=== PATIENT | female | born 1980 | race Caucasian/White ===

== ENCOUNTER 2017-01-10 05:53 | Inpatient (IN) | payer MEDICAID ==
[~2017-01-10 05:53] MED LIST: FERRTAB2 PO; METR-1 PO; PREN29TA PO
--- NOTE | 2017-01-10 06:26 | HHI.HP ---
HPI Chief Complaint Contractions Date Seen: Jan 10, 2017 Time Seen: 06:00 (Adam Murguia II, MD) Travel History International Travel<30 Days: No Contact w/Intl Traveler<30Days: No Known Affected Area: No (Adam Murguia II, MD) History of Present Illness HPI 36-year-old white female a 3-37 weeks gestation [facility] and presents in precipitate labor completely dilated on admission, heart rate tracing is reactive and no bleeding or leakage. Membranes are intact this point Weeks Gestation: 37 Para: 5 : 9 : 3 (Adam Murguia II, MD) History Obstetric History Obstetric History This patient's a grand multipara 9 para 5 A3 early terminations (Adam Murguia II, MD) Social History Alcohol Use: No Tobacco Use: Yes Substance Abuse: No (Adam Murguia II, MD) Allergies-Medications (Allergen,Severity, Reaction): Coded Allergies: No Known Allergies (Unverified , 11/19/16) Home Meds Active Scripts Metronidazole (Flagyl) 500 Mg Tab, 1000 MG PO DAILY for Infection, #8 TAB 0 Refills Prov:Suzy Oleary 12/05/16 Multi-Vit/Iron-Folic Ejjp-I59-Gkg C (Ferralet) 90-1-0.012-120 mg Tab, 1 BOTTLE PO DAILY for anemia, #90 BOTTLE Prov:Russel Moreno MD 11/19/16 Vit-Iron Carbonyl ( Plus Iron 29-1 mg) 1 Tab Tab, 1 TAB PO DAILY for Nutritional Supplement, #90 TAB 0 Refills Prov:Russel Moreno MD 11/19/16 Review of Systems General / Constitutional: No: Fever, Weight Gain, Chills, Other Eyes: No: Diploplia, Blurred Vision, Visual changes, Pain, Photophobia HENT: No: Headaches, Vertigo, Lightheadedness Cardiovascular: No: Irregular Rhythm, Chest Pain or Discomfort, Palpitations, Tachycardia, Syncope, Varicosities, Edema, Cyanosis Respiratory: No: Cough, Short of Breath, Other Gastrointestinal: No: Nausea, Vomiting, Diarrhea Genitourinary: No: Decreased Urinary Output, Oliguria Musculoskeletal: No: Limited ROM, Weakness, Cramping, Edema, Pain Skin: No Rash, No Itching, No Dryness, No Lumps, No Change in Pigmentation, No Change in Nails, No Alopecia, No Lesions Neurologic: No: Weakness, Dizziness, Syncope, Focal Abnormalities, Coordination Problem, Headache, Slurred Speech, Seizures Psychiatric: No: Depression, Suicidal Ideations, Homicidal Ideation Endocrine: No: Heat Intolerance, Cold Intolerance, Polydipsia, Polyuria, Other (Adam Murguia II, MD) Physical Exam Narrative GENERAL: Well-nourished, well-developed patient. SKIN: Warm and dry. HEAD: Normocephalic and atraumatic. EYES: No scleral icterus. No injection or drainage. ENT: No nasal drainage noted. Mucous membranes pink. Airway patent. NECK: Supple, trachea midline. No JVD. CARDIOVASCULAR: Regular rate and rhythm without murmurs, gallops, or rubs. RESPIRATORY: Breath sounds equal bilaterally. No accessory muscle use. BREASTS: Bilateral exam showed no masses , no retractions, no nipple discharge. ABDOMEN/GI: Abdomen soft, non-tender, bowel sounds present, no rebound, no guarding Gravid to [-] weeks size Fundal Height: [-] GENITOURINARY: External Genitalia: intact and normal in appearance BUS glands: [-] Cervix: [-] Dilatation: [-] Effacement: [-] Station: [-] Presentation: [-] Membranes: [intact or ruptured] Uterine Contractions: [-] FHT's: Category: [-] Baseline: [-] Reactive: [-] Variability: [-] Decels: [-] EXTREMITIES: No cyanosis or edema. BACK: Nontender without obvious deformity. No CVA tenderness. NEUROLOGICAL: Awake and alert. Motor and sensory grossly within normal limits. Five out of 5 muscle strength in all muscle groups. Normal speech. (Solis Messina MD R2) Narrative HEENT exam is normal limits cardiovascular exam regular rate and rhythm lungs are clear Abdomen fundal height equal dates Cervix is 10 cm with intact membranes 100% effaced extremities are within normal limits (Adam Murguia II, MD) Caprini VTE Risk Assessment Caprini Risk Assessment Model Point Value = 1 Point Value = 2 Point Value = 3 Point Value = 5 Age 41-60 Minor surgery BMI > 25 kg/m2 Swollen legs Varicose veins or History of unexplained or recurrent spontaneous Oral contraceptives or hormone replacement Sepsis (< 1 month) Serious lung disease, including pneumonia (< 1 month) Abnormal pulmonary function Acute myocardial infarction Congestive heart failure (< 1 month) History of inflammatory bowel disease Medical patient at bed rest Age 61-74 Arthroscopic surgery Major open surgery (> 45 min) Laparoscopic surgery (> 45 min) Malignancy Confined to bed (> 72 hours) Immobilizing plaster cast Central venous access Age >= 75 History of VTE Family history of VTE Factor V Leiden Prothrombin [id number] Lupus anticoagulant Anticardiolipin antibodies Elevated serum homocysteine Heparin-induced thrombocytopenia Other congenital or acquired thrombophilia Stroke (< 1 month) Elective arthroplasty Hip, pelvis, or leg fracture Acute spinal cord injury (< 1 month) Prophylaxis Regimen Total Risk Factor Score Risk Level Prophylaxis Regimen 0-1 Low Early ambulation 2 Moderate Order ONE of the following: *Sequential Compression Device (SCD) *Heparin 5000 units SQ BID 3-4 Higher Order ONE of the following medications: *Heparin 5000 units SQ TID *Enoxaparin/Lovenox 40 mg SQ daily (WT < 150 kg, CrCl > 30 mL/min) *Enoxaparin/Lovenox 30 mg SQ daily (WT < 150 kg, CrCl > 10-29 mL/min) *Enoxaparin/Lovenox 30 mg SQ BID (WT < 150 kg, CrCl > 30 mL/min) AND/OR *Sequential Compression Device (SCD) 5 or more Highest Order ONE of the following medications: *Heparin 5000 units SQ TID (Preferred with Epidurals) *Enoxaparin/Lovenox 40 mg SQ daily (WT < 150 kg, CrCl > 30 mL/min) *Enoxaparin/Lovenox 30 mg SQ daily (WT < 150 kg, CrCl > 10-29 mL/min) *Enoxaparin/Lovenox 30 mg SQ BID (WT < 150 kg, CrCl > 30 mL/min) AND *Sequential Compression Device (SCD) (Solis Messina MD R2) Caprini VTE Risk Assessment: No/Low Risk (score <= 1) (Adam Murguia II, MD) Data Data Orders Orders Ob (2e) Additional Admit Info (01/10/17 06:16) Admit To Inpatient (01/10/17 ) Code Status (01/10/17 06:23) Vital Signs (Adult) .Per protocol (01/10/17 06:23) Complete Blood Count With Diff (01/10/17 06:23) Hold Clot (01/10/17 06:23) Abo/Rh Blood Type (01/10/17 06:23) Urinalysis - C+S If Indicated (01/10/17 06:23) Resp Oxygen Non Rebreathe Mask (01/10/17 ) Inpatient Certification (01/10/17 ) Specimen To Be Collected PRN (01/10/17 06:23) Vital Signs (Adult) .QSHIFT (01/10/17 06:23) Activity Oob Ad Nancy (01/10/17 06:23) Ice / Cold Pack PRN (01/10/17 06:23) Discontinue Iv (01/10/17 06:23) Sitz Bath PRN (01/10/17 06:23) ^ Massage (01/10/17 06:23) ^ Rhogam (01/10/17 06:23) Urinary Catheter Management .PRN (01/10/17 06:23) Diet Regular Basic (01/10/17 Breakfast) Sodium Chloride 0.9% Flush (Ns Flush) (01/10/17 09:00) Sodium Chloride 0.9% Flush (Ns Flush) (01/10/17 06:30) Oxytocin 30 Units-500ml Premix (Pitocin (01/10/17 06:30) Acetaminophen (Tylenol) (01/10/17 06:30) Ibuprofen (Motrin) (01/10/17 06:30) Benzocaine 20% Top Spr (Americaine 20% T (01/10/17 06:30) Witch [place]-Glycerin Pad (Tucks Pads) (01/10/17 06:30) Docusate Sodium-Senna (Gifty-Colace) (01/10/17 06:30) Zolpidem (Ambien) (01/10/17 06:30) Bbkarnl-Polom-Jvlwkof Inj (M-M-R Ii Inj) (01/10/17 16:00) Kgtm-Hgf-Npdxpl (Booster) Inj (Boostrix (01/10/17 16:00) Al-Mag Hy-Si 40-40-4 Mg/Ml Liq (Mag-Al P (01/10/17 06:30) Ondansetron Odt (Zofran Odt) (01/10/17 06:30) (Solis Messina MD R2) Assessment/Plan Assessment and Plan Patient is 36-year-old white female multiparous at 37 weeks presents precipitate labor in the second stage completely dilated. Plan is admission labor management and anticipate rapid vaginal delivery (Adam Murguia II, MD) Solis Messina MD R2 Jan 10, 2017 06:26 Adam Murguia II, MD Jan 10, 2017 06:44
[2017-01-10] MEDS ORDERED: ZOLPIDEM TARTRATE 5 MG TAB PO PRN (06:30)
[2017-01-10] MEDS ORDERED: ALUMINUM/MAGNESIUM/SIMETH 30 ML CUP PO PRN (06:30)
[2017-01-10] MEDS ORDERED: SODIUM CHLORIDE 0.9% FLUSH 10 ML FLUSH IV FLUSH PRN (06:30)
[2017-01-10] MEDS ORDERED: WITCH HAZEL 50%/GLYCERIN 12.5% 40 PAD JAR TOPICAL PRN (06:30)
[2017-01-10] MEDS ORDERED: ONDANSETRON ODT 4 MG TAB PO PRN (06:30)
[2017-01-10] MEDS ORDERED: BENZOCAINE 20% TOPICAL SPRAY 60 ML CAN TOPICAL PRN (06:30)
[2017-01-10] MEDS ORDERED: ACETAMINOPHEN 325 MG TAB PO PRN (06:30)
[2017-01-10] MEDS ORDERED: OXYTOCIN 30 UNITS-500ML PREMIX 500 ML IV SCH (06:30)
[2017-01-10] MEDS ORDERED: DOCUSATE SODIUM 50 MG/SENNA 8.6 MG TAB PO PRN (06:30)
--- NOTE | 2017-01-10 06:32 | PD.OB.DELI ---
Weeks gestation: 37 Gest age assessed date: Jan 10, 2017 Gest age assessed time: 06:30 Pt started active labor?: Yes Active labor start date: Jan 10, 2017 Active labor start time: 06:30 Medical induction of labor?: No Artificial rupture of membrane: Yes Artificial ROM date: Jan 10, 2017 Artifical ROM time: 06:31 Anesthesia: None Episiotomy: None Vaginal Delivery: Normal Presentation: Occiput anterior Nuchal Cord: None Delayed cord clamping (45 sec): No Infant: Female Delivery date: Jan 10, 2017 Delivery time: 06:13 One Minute : 9 Five Minute : 9 Weight: [id number] Placenta: Spontaneous delivery Laceration: No lacerations Estimated blood loss: 150cc Additional Information Delivery by Dr. Pradhan SDW: Dr. Murguia, Solis Harkins MD Jan 10, 2017 06:32
[2017-01-10] MEDS ORDERED: SODIUM CHLORIDE 0.9% FLUSH 10 ML FLUSH IV FLUSH SCH (09:00)
[2017-01-10] MEDS: IBUPROFEN 600 MG TAB PO PRN ×2 (09:18→15:30)
[2017-01-10] MEDS: oxyCODONE/ACETAMINOPHEN 5 MG/325 MG TAB PO PRN ×3 (11:03→21:04)
[2017-01-10] MEDS ORDERED: DIPHTH/TETANUS/ACEL PERTUSSIS (BOOSTER) 0.5 ML VIAL/PFS IM ONE (16:00)
[2017-01-10] MEDS ORDERED: MEASLES, MUMPS, RUBELLA VACCINE 0.5 ML VIAL SQ ONE (16:00)
[2017-01-10 16:51] LABS: AUTOMATED NEUTROPHIL # 12.5 TH/MM3 (1.8-7.7); BASOPHIL # 0.1 TH/MM3 (0-0.2); BASOPHIL % 0.5 % (0.0-2.0); EOSINOPHIL # 0.1 TH/MM3 (0-0.4); EOSINOPHIL % 0.6 % (0.0-4.0); HEMATOCRIT 27.4 % (35.0-46.0); HEMO FLAGS DIFF FINAL; LYMPH % 20.4 % (9.0-44.0); LYMPHOCYTE # 3.5 TH/MM3 (1.0-4.8); MEAN CORPUSCULAR HEMOGLOBIN 24.2 PG (27.0-34.0); MEAN CORPUSCULAR HGB CONC 33.6 % (32.0-36.0); MONO % 5.4 % (0.0-8.0); NEUT % 73.1 % (16.0-70.0); PLATELET COUNT 376 TH/MM3 (150-450); RED BLOOD COUNT 3.81 MIL/MM3 (4.00-5.30); RED CELL DISTRIBUTION WIDTH 16.1 % (11.6-17.2); WHITE BLOOD COUNT 17.2 TH/MM3 (4.0-11.0)
[2017-01-10 19:57] LABS: BACTERIA, URINE MOD /hpf; BLOOD, URINE LARGE (NEG); GLUCOSE,URINE NEG (NEG); KETONE, URINE NEG (NEG); NITRITE,URINE POS (NEG); SQUAMOUS EPITHELIAL CELL URINE 1 /hpf (0-5)
[2017-01-10 19:58] LABS: COMMENT (UR) CULTURE INDICATED; CULTURE IF INDICATED CULTURE INDICATED; URINE COLOR LIGHT-RED (YELLW/STRAW)
[2017-01-11] MEDS ORDERED: HEPATITIS B INFANT/ADOLESCENT VACCINE 5 MCG/0.5 ML VIAL IM ONE (09:00)
--- NOTE | 2017-01-11 10:22 | HHI.OB ---
Subjective Post Day: 1 Remarks Pt seen and examined this morning. Post day # 1 AFVSS overnight. Decreased lochia. Denies dysuria. No breast tenderness. She is feeding the baby via bottle. Appetite good. No nausea or vomiting. Patient has not yet had a bowel movement, but does endorse spell gas. Ambulating well. Denies calf pain or shortness of breath. Otherwise, she is doing well this morning and has no other concerns. Objective Objective Remarks GENERAL: Well-nourished, well-developed patient. CARDIOVASCULAR: Regular rate and rhythm without murmurs, gallops, or rubs. RESPIRATORY: Breath sounds equal bilaterally. No accessory muscle use. ABDOMEN/GI: Abdomen soft, non-tender. Fundus: Firm, non-tender at umbilicus. GENITOURINARY: Light to moderate bleeding. EXTREMITIES: No cyanosis or edema, non-tender, without signs of DVT. Medications and IVs Current Medications Medications (Trade) Dose Ordered Sig/Gosia Route Start Time Stop Time Status Last Admin (NS Flush) 2 ml BID IV FLUSH 01/10/17 09:00 (NS Flush) 2 ml UNSCH PRN IV FLUSH 01/10/17 06:30 (Tylenol) 650 mg Q4H PRN PO 01/10/17 06:30 (Motrin) 600 mg Q6H PRN PO 01/10/17 06:30 01/10/17 15:30 (Americaine 20% Top Spr) 1 spray Q4H PRN TOPICAL 01/10/17 06:30 01/10/17 09:18 (Tucks Pads) 1 applic QID PRN TOPICAL 01/10/17 06:30 01/10/17 09:18 (Gifty-Colace) 2 tab Q12H PRN PO 01/10/17 06:30 01/10/17 09:17 (Ambien) 5 mg HS PRN PO 01/10/17 06:30 (Mag-Al Plus Susp Liq) 15 ml Q8H PRN PO 01/10/17 06:30 (Zofran Odt) 4 mg Q6H PRN PO 01/10/17 06:30 (Percocet 5-325 Mg) 1 tab Q4H PRN PO 01/10/17 11:00 01/10/17 21:04 Assessment/Plan Assessment and Plan 36 y/o female who is day # 1 s/p . -Continue routine care. -Motrin PRN pain. -Encouraged OOB. Advised pelvic rest for 6 wks. -Polysubstance abuse: Patient UDS positive for amphetamines -Re: ctrl, she would like discuss her options at her follow-up appointment. -Anticipate discharge tomorrow pending clinical course. darell Cantu MD Discharge Planning Tomorrow pending clinical course Solis Messina MD R2 Jan 11, 2017 10:22
[2017-01-11] MEDS: IBUPROFEN 600 MG TAB PO PRN ×2 (10:36→19:07)
[2017-01-11] MEDS: oxyCODONE/ACETAMINOPHEN 5 MG/325 MG TAB PO PRN ×4 (10:36→23:49)
[2017-01-11 17:15] VITALS: BP 127/73; PULSE 61; RESP 18; TEMP 98.4
[2017-01-12] MEDS: IBUPROFEN 600 MG TAB PO PRN ×2 (05:29→13:22)
[2017-01-12] MEDS: oxyCODONE/ACETAMINOPHEN 5 MG/325 MG TAB PO PRN ×3 (05:29→13:22)
--- NOTE | 2017-01-12 09:38 | HHI.OB ---
Subjective Post Day: 2 Remarks day #2. AFVSS overnight. Pain minimal. Decreased lochia. Denies dysuria. No breast tenderness. She is feeding the baby via formula. Appetite good. No nausea or vomiting. Endorses flatus. No bowel movement. Ambulating well. Denies calf pain, shortness of breath, or cough. Otherwise, she is doing well this morning and has no other complaints. Objective Vitals/I&O Vital Signs Date Time Temp Pulse Resp B/P (MAP) Pulse Ox O2 Delivery O2 Flow Rate FiO2 01/11/17 17:15 98.4 61 18 127/73 (91) Objective Remarks GENERAL: Well-nourished, well-developed patient. CARDIOVASCULAR: Regular rate and rhythm without murmurs, gallops, or rubs. RESPIRATORY: Breath sounds equal bilaterally. No accessory muscle use. ABDOMEN/GI: Abdomen soft, non-tender. Fundus: Firm, non-tender at umbilicus. GENITOURINARY: Light to moderate bleeding. EXTREMITIES: No cyanosis or edema, non-tender, without signs of DVT. Medications and IVs Current Medications Medications (Trade) Dose Ordered Sig/Gosia Route Start Time Stop Time Status Last Admin (NS Flush) 2 ml BID IV FLUSH 01/10/17 09:00 (NS Flush) 2 ml UNSCH PRN IV FLUSH 01/10/17 06:30 (Tylenol) 650 mg Q4H PRN PO 01/10/17 06:30 (Motrin) 600 mg Q6H PRN PO 01/10/17 06:30 01/12/17 05:29 (Americaine 20% Top Spr) 1 spray Q4H PRN TOPICAL 01/10/17 06:30 01/10/17 09:18 (Tucks Pads) 1 applic QID PRN TOPICAL 01/10/17 06:30 01/10/17 09:18 (Gifty-Colace) 2 tab Q12H PRN PO 01/10/17 06:30 01/10/17 09:17 (Ambien) 5 mg HS PRN PO 01/10/17 06:30 (Mag-Al Plus Susp Liq) 15 ml Q8H PRN PO 01/10/17 06:30 (Zofran Odt) 4 mg Q6H PRN PO 01/10/17 06:30 (Percocet 5-325 Mg) 1 tab Q4H PRN PO 01/10/17 11:00 01/12/17 09:16 Assessment/Plan Assessment and Plan 36 y/o female who is day #2 s/p . -Continue routine care. -Motrin PRN pain. -Encouraged OOB. Advised pelvic rest for 6 wks. -Polysubstance abuse: Patient UDS positive for amphetamines -Re: ctrl, she would like discuss her options at her follow-up appointment. -Urine culture positive for GNR, treat on d/c based on sensitivities -Anticipate discharge today Bryn Garcia MD, R2 Jan 12, 2017 09:38
--- NOTE | 2017-01-12 09:39 | HHI.OB ---
Subjective Post Day: 2 Remarks day #2. AFVSS overnight. Pain minimal. Decreased lochia. Denies dysuria. No breast tenderness. She is feeding the baby via formula. Appetite good. No nausea or vomiting. Passing flatus. Had bowel movement. Ambulating well. Denies calf pain, shortness of breath, or cough. Otherwise, she is doing well this morning and has no other complaints. Objective Vitals/I&O Vital Signs Date Time Temp Pulse Resp B/P (MAP) Pulse Ox O2 Delivery O2 Flow Rate FiO2 01/11/17 17:15 98.4 61 18 127/73 (91) Objective Remarks GENERAL: Well-nourished, well-developed patient. CARDIOVASCULAR: Regular rate and rhythm without murmurs, gallops, or rubs. RESPIRATORY: Breath sounds equal bilaterally. No accessory muscle use. ABDOMEN/GI: Abdomen soft, non-tender. Fundus: Firm, non-tender at umbilicus. GENITOURINARY: Light to moderate bleeding. EXTREMITIES: No cyanosis or edema, non-tender, without signs of DVT. Medications and IVs Current Medications Medications (Trade) Dose Ordered Sig/Gosai Route Start Time Stop Time Status Last Admin (NS Flush) 2 ml BID IV FLUSH 01/10/17 09:00 (NS Flush) 2 ml UNSCH PRN IV FLUSH 01/10/17 06:30 (Tylenol) 650 mg Q4H PRN PO 01/10/17 06:30 (Motrin) 600 mg Q6H PRN PO 01/10/17 06:30 01/12/17 05:29 (Americaine 20% Top Spr) 1 spray Q4H PRN TOPICAL 01/10/17 06:30 01/10/17 09:18 (Tucks Pads) 1 applic QID PRN TOPICAL 01/10/17 06:30 01/10/17 09:18 (Gifty-Colace) 2 tab Q12H PRN PO 01/10/17 06:30 01/10/17 09:17 (Ambien) 5 mg HS PRN PO 01/10/17 06:30 (Mag-Al Plus Susp Liq) 15 ml Q8H PRN PO 01/10/17 06:30 (Zofran Odt) 4 mg Q6H PRN PO 01/10/17 06:30 (Percocet 5-325 Mg) 1 tab Q4H PRN PO 01/10/17 11:00 01/12/17 09:16 Assessment/Plan Assessment and Plan 36 y/o female who is day # 2 s/p . -Continue routine care. -Motrin PRN pain. -Encouraged OOB. Advised pelvic rest for 6 wks. -Polysubstance abuse: Patient UDS positive for amphetamines -Re: ctrl, she would like discuss her options at her follow-up appointment. -D/C today dw Dr. Blade MD Discharge Planning Tomorrow pending clinical course Irene Sterling MD R1 Jan 12, 2017 09:39
[2017-01-12] MEDS ORDERED: SENN1TAB PO (09:40)
[2017-01-12] MEDS ORDERED: IBUP-232 PO (09:40)
[2017-01-12] MEDS ORDERED: MACR100C2 PO (09:41)
--- NOTE | 2017-01-12 09:41 | HHI.DCPOC ---
Discharge Care Plan Diagnosis: (1) Normal , repeat Report Symptoms to Your Doctor -Temperature above 100.5 degrees -Redness, of incision or excessive or foul smelling drainage -Unusual pain or calf pain -Increased vaginal bleeding -Painful or difficulty urinating -Feelings of extreme sadness or anxiety after 2 weeks Goals to Promote Your Health * To prevent worsening of your condition and complications * To maintain your health at the optimal level Directions to Meet Your Goals Take your medications as prescribed Follow your dietary instruction Follow activity as directed Ensure plenty of rest for recovery Drink fluids for hydration Keep your appointments as scheduled Take your immunizations and boosters as scheduled If your symptoms worsen call your PCP, if no PCP go to Urgent Care Center or Emergency Room Smoking is Dangerous to Your Health. Avoid second hand smoke Call the 24-hour crisis hotline for domestic abuse at Bryn Garcia MD, R2 Jan 12, 2017 09:41
[2017-01-19 11:54] LABS: PHENCYCLIDINE URINE NEG (NEG)
[2017-01-19 11:55] LABS: BATH SALTS (MDPV) UR NEG (NEG); ECSTASY (MDMA) UR NEG (NEG); HEROIN (6-ACETYLMORPHINE) UR NEG (NEG); K2 SPICE UR NEG (NEG); OBMETHADONE UR NEG (NEG)
[2017-01-19 11:57] LABS: GABAPENTIN UR NEG (NEG); HYDROMORPHONE U NEG (NEG)
== END 2017-01-12 14:00 | disposition home or self-care (01) | DRG 775 ==
LOC: HOBED 05:53 → H2EB 06:16 → H1EA 08:07
PROVIDERS: ADMIT Obstetrics & Gynecology Maternal & Fetal Medicine; ATTEND Obstetrics & Gynecology Maternal & Fetal Medicine
PROC: 10E0XZZ Delivery of Products of Conception, External Approach (ICD-10-PCS; principal; 2017-01-10)
PROC: 10907ZC Drainage of Amniotic Fluid, Therapeutic from Products of Conception, Via Natural or Artificial Opening (ICD-10-PCS; 2017-01-10)
DX: O62.3 Precipitate labor (principal); O99.323 Drug use complicating pregnancy, third trimester; F15.10 Other stimulant abuse, uncomplicated; Z37.0 Single live birth; Z3A.37 37 weeks gestation of pregnancy
CPT/HCPCS: 80307; 81001; 85025; 86900; 86901; 87077; 87086; 87186; G0481